=== PATIENT | female | born 1945 | race Caucasian/White ===

== ENCOUNTER → 2018-09-14 | Outpatient (CLI) | payer MEDICARE ==
[~2018-09-14] MED LIST: ACET-1600 PO; ALBU8.5H8 INH; CETI10TA18 PO; CHOL100014 PO; ESTR30CR VG; GEMF600T4 PO; IBUP-11 PO; KETO15CR2 TD; LEVO25TA4 PO; MAGN100T3 PO; MEGARED PO; METF500T17 PO; MOME17SP INH; MULT-224 PO; VALS160T3 PO; VALS320T2 PO; [UNRECOGNIZED DRUG - CODE] PO; [UNRECOGNIZED DRUG - OTHER] PO
== END | disposition home or self-care (01) ==
LOC: RAD 09:55
PROVIDERS: ATTEND Psychiatry & Neurology Neurology
DX: I65.01 Occlusion and stenosis of right vertebral artery (principal); Q28.3 Other malformations of cerebral vessels; F03.90 Unspecified dementia, unspecified severity, without behavioral disturbance, psychotic disturbance, mood disturbance, and anxiety
CPT/HCPCS: 70544